=== PATIENT | male | born 1955 | race Caucasian/White ===

== ENCOUNTER 2023-05-02 13:17 | Observation (INO) | payer BC, MEDICARE ==
[2023-05-02] MEDS ORDERED: Sodium Chloride 0.9% 1,000 ML IV ONE (13:28)
[2023-05-02] MEDS ORDERED: Sodium Chloride 0.9% 10 ML Syringe FLUSH PRN (13:28)
[2023-05-02] MEDS ORDERED: MVI, Adult with Vitamin K 10 ML, Folic Acid 1 MG, Thiamine 100 MG in D5 1/2 NS w/ 20 mE... IV ONE ×4 (13:29)
[2023-05-02 13:38] LABS: BASOPHILS ABSOLUTE AUTO 0.02 10^3/uL (0.00-0.10); BASOPHILS PERCENT AUTO 0.3 % (0.0-1.0); EOSINOPHILS ABSOLUTE AUTO 0.09 10^3/uL (0.10-0.30); EOSINOPHILS PERCENT AUTO 1.5 % (1.0-3.0); HEMATOCRIT 38.6 % (40.0-52.0); HEMOGLOBIN 13.6 g/dL (13.0-17.0); IMMATURE GRAN ABSOLUTE AUTO 0.01 10^3/uL (0.00-0.50); IMMATURE GRAN PERCENT AUTO 0.2 % (0.0-5.0); LYMPHOCYTES ABSOLUTE AUTO 1.29 10^3/uL (1.00-4.00); LYMPHOCYTES PERCENT AUTO 21.8 % (20.0-40.0); MEAN CORPUSCULAR HEMOGLOBIN 36.1 pg (27.0-31.0); MEAN CORPUSCULAR HGB CONC 35.2 g/dL (32.0-36.0); MEAN CORPUSCULAR VOLUME 102.4 fL (82.0-92.0); MEAN PLATELET VOLUME 10.2 fL (7.4-10.4); MONOCYTES ABSOLUTE AUTO 0.59 10^3/uL (0.10-0.80); NEUTROPHILS ABSOLUTE AUTO 3.92 10^3/uL (2.50-7.00); NEUTROPHILS PERCENT AUTO 66.2 % (50.0-70.0); PLATELET COUNT,PLT 113 10^3/uL (150-400); RED BLOOD CELL COUNT 3.77 10^6/uL (4.50-6.00); RED CELL DISTRIBUTION WIDTH 13.8 % (11.5-14.5); WHITE BLOOD CELL COUNT,WBC 5.92 10^3/uL (5.00-10.00)
[2023-05-02] MEDS ORDERED: THIAMINE IV ONE (13:45)
[2023-05-02] MEDS ORDERED: KCL IV ONE (13:45)
[2023-05-02] MEDS ORDERED: FOLIC ACID IV ONE (13:45)
[2023-05-02] MEDS ORDERED: 1/2 NS W IV ONE (13:45)
[2023-05-02] MEDS ORDERED: D5 IV ONE (13:45)
[2023-05-02 13:53] LABS: ALANINE AMINOTRANSFERASE,ALT 54 U/L (14-63); ALBUMIN 3.53 g/dL (3.40-5.00); ALKALINE PHOSPHATASE 103 U/L (46-116); ANION GAP 10.1 mmol/L (5-15); ASPARTATE AMNIOTRANSFERASE,AST 49 U/L (15-37); BILIRUBIN TOTAL 0.4 mg/dL (0.2-1.0); CALCIUM 9.9 mg/dL (8.7-10.3); CARBON DIOXIDE,CO2 28.1 mmol/L (21.0-32.0); CHLORIDE,CL 93 mmol/L (98-107); CREATININE 3.36 mg/dL (0.51-1.17); GLUCOSE RANDOM 96 mg/dL (70-140); MAGNESIUM 2.3 mg/dL (1.8-2.4); POTASSIUM,K 4.2 mmol/L (3.5-5.1); SODIUM,NA 127 mmol/L (136-145)
[2023-05-02 13:56] LABS: BLOOD UREA NITROGEN,BUN 58 mg/dL (7-18); ESTIMATED GFR 19 mL/min (>=60)
[2023-05-02] MEDS ORDERED: Multivitamins with Minerals/Iron/Folic Acid/Lycopene Tab PO ONE (13:57)
[2023-05-02 14:12] LABS: APPEARANCE,URINE CLEAR (CLEAR); BILIRUBIN,URINE NEGATIVE (NEGATIVE); COLOR,URINE YELLOW (YELLOW); GLUCOSE,URINE NEGATIVE (NEGATIVE); KETONES,URINE NEGATIVE (NEGATIVE); LEUKOCYTE ESTERASE,URINE NEGATIVE (NEGATIVE); NITRITE,URINE NEGATIVE (NEGATIVE); OCCULT BLOOD,URINE NEGATIVE (NEGATIVE); PROTEIN,URINE 100 mg/dL (NEGATIVE); UROBILINOGEN,URINE 0.2 E.U./dL (0.2-1.0)
[2023-05-02 14:17] LABS: BACTERIA,URINE RARE /HPF (NONE TO FEW); EPITHELIAL CELLS,URINE RARE /LPF; MUCUS,URINE RARE /LPF (NEGATIVE); RBC,URINE 0-5 /HPF (0-5); WBC,URINE 0-5 /HPF (0-5)
[2023-05-02] MEDS ORDERED: Acetaminophen 325 MG Tab PO PRN (16:47)
[2023-05-02] MEDS: Heparin Sodium 5,000 Units/ML Vial SUBCUT SCH ×2 (17:22→19:14)
[2023-05-02] MEDS ORDERED: Insulin Lispro 100 Unit/ML 3 ML KwikPen SUBCUT PRN (20:05)
[2023-05-02] MEDS ORDERED: Glucagon,Human Recombinant 1 MG Vial IM PRN (20:05)
[2023-05-02] MEDS ORDERED: 50% Dextrose in Water 50 ML Syringe IVPUSH PRN (20:05)
[2023-05-02] MEDS: Sodium Chloride 0.9% 1,000 ML IV SCH (21:44)
[2023-05-03] MEDS: Sodium Chloride 0.9% 1,000 ML IV SCH ×2 (05:56→15:28)
[2023-05-03 07:21] LABS: ALBUMIN 2.95 g/dL (3.40-5.00); ANION GAP 8.6 mmol/L (5-15); BILIRUBIN TOTAL 0.7 mg/dL (0.2-1.0); CALCIUM 8.6 mg/dL (8.7-10.3); CARBON DIOXIDE,CO2 26.4 mmol/L (21.0-32.0); CREATININE 1.84 mg/dL (0.51-1.17); EST CRCL DRUG DOSING (CG) 37.69 mL/min; MAGNESIUM 1.7 mg/dL (1.8-2.4)
[2023-05-03] MEDS: Aspirin 81 MG Tab.EC PO SCH (08:24)
[2023-05-03] MEDS: Multivitamins with Minerals/Iron/Folic Acid/Lycopene Tab PO SCH (08:24)
[2023-05-03] MEDS: Heparin Sodium 5,000 Units/ML Vial SUBCUT SCH ×2 (08:24→20:55)
[2023-05-03] MEDS: PARoxetine 20 MG Tab PO SCH (08:24)
[2023-05-03] MEDS ORDERED: amLODIPine 5 MG Tab PO SCH (09:00)
[2023-05-03] MEDS ORDERED: Gabapentin 300 MG Cap PO SCH (09:30)
[2023-05-03] MEDS ORDERED: Labetalol 100 MG/20 ML MDV IVPUSH PRN (11:34)
[2023-05-03] MEDS: Gabapentin 300 MG Cap PO SCH ×2 (14:49→20:55)
[2023-05-04] MEDS: Sodium Chloride 0.9% 1,000 ML IV SCH (01:05)
[2023-05-04 07:33] LABS: ALBUMIN 3.08 g/dL (3.40-5.00); ANION GAP 14.7 mmol/L (5-15); BILIRUBIN TOTAL 0.8 mg/dL (0.2-1.0); CALCIUM 8.5 mg/dL (8.7-10.3); CREATININE 1.1 mg/dL (0.51-1.17); EST CRCL DRUG DOSING (CG) 63.05 mL/min; MAGNESIUM 1.2 mg/dL (1.8-2.4); POTASSIUM,K 3.7 mmol/L (3.5-5.1); PROTEIN TOTAL,TP 6.4 g/dL (6.4-8.2)
[2023-05-04] MEDS: Aspirin 81 MG Tab.EC PO SCH (08:19)
[2023-05-04] MEDS: Gabapentin 300 MG Cap PO SCH (08:19)
[2023-05-04] MEDS: Multivitamins with Minerals/Iron/Folic Acid/Lycopene Tab PO SCH (08:19)
[2023-05-04] MEDS: PARoxetine 20 MG Tab PO SCH (08:19)
[2023-05-04] MEDS: Heparin Sodium 5,000 Units/ML Vial SUBCUT SCH (08:19)
== END 2023-05-04 11:12 | disposition home or self-care (01) ==
LOC: KA.ED 13:17 → UNDOADMOB 15:04 → KA.MS 15:04 → UNDODISOB 05-04 11:12
PROVIDERS: ADMIT Internal Medicine; ATTEND Internal Medicine
DX: N17.9 Acute kidney failure, unspecified (principal); E86.0 Dehydration; E87.1 Hypo-osmolality and hyponatremia; F12.90 Cannabis use, unspecified, uncomplicated; F10.10 Alcohol abuse, uncomplicated; I10 Essential (primary) hypertension; E11.9 Type 2 diabetes mellitus without complications
CPT/HCPCS: 36415; 70450; 71045; 80053; 81001; 82947; 83605; 83735; 85025; 96361; 96365; 96366; 96372; 96375; 99285-25; A9270-GY; G0378; J1644; J1815-GY; J3411; J3480; J3490; J7030